=== PATIENT | female | born 1970 | race Caucasian/White ===

== ENCOUNTER 2022-06-12 07:23 | Inpatient (IN) ==
--- NOTE | 2022-06-11 09:02 | XRay Report ---
CLINICAL INFORMATION: Preop COMPARISON: 01/10/2010 TECHNIQUE: PA and lateral views were obtained. FINDINGS: The heart size and pulmonary vessels are unremarkable. Small hiatal hernia noted. Mediastinum otherwise normal The lungs are clear. There are no effusions. IMPRESSION: No acute disease. Small hiatal hernia Interpreted and Authenticated by: Bran Macias 06/11/22
[2022-06-11 11:03] LABS: Partial Thromboplastin Time 40.3 sec (20.0-37.0)
[2022-06-11 11:04] LABS: INR 0.9 (0.9-1.1)
[~2022-06-12 07:23] MED LIST: ceFAZolin 2 GM in DEXTROSE 5% IN WATER 50 ML IV SCH
[2022-06-12] MEDS ORDERED: MAGNESIUM SULFATE 2 GM/50 ML BAG IV ONE (08:42)
[2022-06-12] MEDS ORDERED: HYDROmorphone 0.5 MG/0.5 ML SYRINGE ONE (08:42)
[2022-06-12] MEDS ORDERED: PHENYLephrine 1 MG/10 ML SYRINGE (ANEST) ONE (08:42)
[2022-06-12] MEDS ORDERED: GLYCOPYRROLATE 0.2 MG/ML VIAL IV ONE (08:42)
[2022-06-12] MEDS ORDERED: ROCURONIUM 10 MG/ML ML IV ONE (08:42)
[2022-06-12] MEDS ORDERED: SUCCINYLCHOLINE 20 MG/ML ML IV ONE (08:42)
[2022-06-12] MEDS ORDERED: PROPOFOL 200 MG/20 ML VIAL IV ONE (08:42)
[2022-06-12] MEDS ORDERED: DEXAMETHASONE 10 MG/ML VIAL ONE (08:42)
[2022-06-12] MEDS ORDERED: TRANEXAMIC ACID 1,000 MG/10 ML VIAL ONE (08:42)
[2022-06-12] MEDS ORDERED: KETAMINE 50 MG/ML Syringe (ANEST) IV ONE (08:42)
[2022-06-12] MEDS ORDERED: LIDOCAINE HCL/PF 100 MG/5 ML SYRINGE IV ONE (08:42)
[2022-06-12] MEDS ORDERED: fentaNYL 100 MCG/2 ML VIAL IV ONE (08:42)
[2022-06-12] MEDS ORDERED: MIDAZOLAM 2 MG/2 ML VIAL ONE (08:42)
[2022-06-12] MEDS ORDERED: ONDANSETRON 4 MG/2 ML VIAL ONE (08:42)
[2022-06-12] MEDS ORDERED: MEPERIDINE 25 MG/ML VIAL IV PRN (09:08)
[2022-06-12] MEDS ORDERED: HYDROmorphone 0.5 MG/0.5 ML SYRINGE IV PRN (09:08)
[2022-06-12] MEDS ORDERED: PROMETHAZINE 25 MG/ML VIAL IV PRN (09:08)
[2022-06-12] MEDS ORDERED: ONDANSETRON 4 MG/2 ML VIAL IV PRN (09:08)
[2022-06-12] MEDS ORDERED: METOPROLOL TARTRATE 5 MG/5 ML VIAL IV PRN (09:08)
[2022-06-12] MEDS ORDERED: IPRATROPIUM/ALBUTEROL 3 ML AMPUL.NEB NEB PRN (09:08)
[2022-06-12] MEDS ORDERED: NALOXONE HCL 0.4 MG/ML VIAL IV PRN (09:08)
[2022-06-12] MEDS ORDERED: LACTATED RINGERS 250 ML IV PRN (09:08)
[2022-06-12] MEDS ORDERED: METHOCARBAMOL 1,000 MG/10 ML VIAL IV PRN (09:08)
[2022-06-12] MEDS ORDERED: ACETAMINOPHEN 1,000 MG/100 ML BAG IV ONE (09:08)
[2022-06-12] MEDS ORDERED: LABETALOL 5 MG/ML ML IV PRN (09:08)
[2022-06-12] MEDS ORDERED: FLUMAZENIL 0.1 MG/ML ML IV PRN (09:08)
--- NOTE | 2022-06-12 09:08 | EKG ---
[facility] Test Date: 2022-06-11 Pat Name: Manjula Kent Department: RODGER Room: Gender: Female Ortho Nurse: : [id number] Requested By: Jennifer Jensen Order Number: [id number] Reading MD: Varinder Mason Measurements Intervals Moran Rate: 88 P: 59 HI: 189 QRS: 13 QRSD: 88 T: 24 QT: 363 QTc: 440 Interpretive Statements Sinus rhythm Electronically Signed On 06-12-2022 9:08:38 PDT by Varinder Mason /store/[email or web address]/[id number]/[id number]
[2022-06-12] MEDS ORDERED: LACTATED RINGERS 1,000 ML IV SCH (09:15)
[2022-06-12] MEDS ORDERED: GELATIN SPONGE,ABSORBABLE 1 EACH SPONGE TOPICAL ONE (10:30)
[2022-06-12] MEDS ORDERED: 0.9 % SODIUM CHLORIDE 250 ML IV SCH (10:45)
--- NOTE | 2022-06-12 11:03 | XRay Report ---
CLINICAL INFORMATION: Intraoperative cholecystectomy. Sponge count COMPARISON: None. FINDINGS: No radiopaque sponges identified. Drain overlies the right upper quadrant. The stool gas pattern is unremarkable. There is no free air, soft tissue mass, organomegaly or pathologic calcification. IMPRESSION: Normal abdomen. No sponges identified. Interpreted and Authenticated by: Bran Macias 06/12/22
--- NOTE | 2022-06-12 11:05 | Brief Operative Note ---
Brief Operative Note Date of procedure: 06/12/22 Pre-op diagnosis: cholelithiasis with cholecystitis Post-op diagnosis: other (cholelithiasis with cholecystitis) Procedure: laparoscopic cholecystectomy open laparotomy with control of bleeding from liver sinus Grafts/Implants: No Anesthesia: GETA Findings: thickened gallbladder wall superficial liver sinus in liver bed with friable wall and hemorrhage Complications: none Surgeon: Jennifer Jensen Estimated blood loss (cc): 400 Specimens Removed/Pathology: other (gallbladder) Condition: stable Disposition: PACU
[2022-06-12] MEDS: fentaNYL 100 MCG/2 ML VIAL IV PRN ×3 (11:29→11:51)
[2022-06-12 11:43] LABS: Hematocrit 26.8 % (34.1-44.9); Hemoglobin 8.3 g/dL (11.2-15.7)
[2022-06-12] MEDS: 0.9 % SODIUM CHLORIDE 1,000 ML IV SCH (12:36)
[2022-06-12] MEDS: LEVOFLOXACIN 500 MG/100 ML BAG IV SCH (12:38)
[2022-06-12] MEDS: HYDROmorphone 1 MG/ML SYRINGE IV PRN ×3 (13:59→19:46)
[2022-06-12] MEDS: 0.9 % SODIUM CHLORIDE 10 ML SYRINGE IV SCH ×2 (14:03→20:33)
[2022-06-12 16:46] LABS: Hematocrit 30.2 % (34.1-44.9); Hemoglobin 9.4 g/dL (11.2-15.7)
[2022-06-12] MEDS ORDERED: PANTOPRAZOLE 40 MG TABLET PO ONE (20:23)
[2022-06-12] MEDS: SENNOSIDES 1 TABLET PO SCH (20:33)
[2022-06-12] MEDS: DOCUSATE SODIUM 100 MG CAPSULE PO SCH (20:33)
[2022-06-12] MEDS: ONDANSETRON 4 MG/2 ML VIAL IV PRN (20:49)
[2022-06-13] MEDS: 0.9 % SODIUM CHLORIDE 1,000 ML IV SCH ×2 (00:06→01:43)
[2022-06-13] MEDS: HYDROmorphone 1 MG/ML SYRINGE IV PRN ×5 (01:43→20:07)
[2022-06-13] MEDS: CALCIUM CARBONATE 500 MG TAB.CHEW CHEWED PRN ×4 (03:37→20:07)
[2022-06-13] MEDS: 0.9 % SODIUM CHLORIDE 10 ML SYRINGE IV SCH ×3 (05:36→20:07)
[2022-06-13 06:48] LABS: Basophils # (Auto) 0.02 K/mcL (0.00-0.30); Basophils % (Auto) 0.2 % (0.0-2.0); Eosinophils # (Auto) 0 K/mcL (0.00-0.70); Eosinophils % (Auto) 0 % (0.0-7.0); Hematocrit 28.4 % (34.1-44.9); Hemoglobin 8.9 g/dL (11.2-15.7); Lymphocytes # (Auto) 1.51 K/mcL (1.50-4.80); Lymphocytes % (Auto) 11.7 % (15.5-49.0); Mean Cell Volume 89.6 fL (80.0-100.0); Mean Corpuscular HGB Conc 31.3 g/dL (31.0-36.0); Mean Platelet Volume 9.6 fL (8.8-12.5); Monocytes # (Auto) 0.72 K/mcL (0.10-0.90); Monocytes % (Auto) 5.6 % (1.0-12.0); Platelet Count 332 K/mcL (140-440); RBC 3.17 M/mcL (3.59-5.38); Red Cell Distribution Width 13.6 % (11.5-14.5)
[2022-06-13 07:12] LABS: ALT/SGPT 94 U/L (<40); AST/SGOT 86 U/L (<32); Albumin 2.9 gm/dL (3.2-5.2); Alkaline Phosphatase 103 U/L (39-117); Bilirubin,Direct < 0.2 mg/dL (0-0.3); Bilirubin,Total 0.4 mg/dL (0.1-1.0); Blood Urea Nitrogen 14 mg/dL (6-20); Calcium 8.3 mg/dL (8.6-10.4); Carbon Dioxide 28 mmol/L (22-30); Chloride 103 mmol/L (96-108); Globulin 2.8 gm/dL (2.2-3.7); Glomerular Filtration Rate 73; Glucose 120 mg/dL (70-105); Lactate Dehydrogenase 253 U/L (135-225); Phosphorous 2.9 mg/dL (2.5-4.5); Triglycerides 95 mg/dL (<150); Uric Acid 4.2 mg/dL (2.5-8.0)
[2022-06-13] MEDS: ONDANSETRON 4 MG/2 ML VIAL IV PRN (07:48)
[2022-06-13] MEDS: DOCUSATE SODIUM 100 MG CAPSULE PO SCH ×2 (10:19→20:07)
[2022-06-13] MEDS: PANTOPRAZOLE 40 MG TABLET PO SCH (12:13)
[2022-06-13] MEDS: LEVOFLOXACIN 500 MG/100 ML BAG IV SCH (12:13)
--- NOTE | 2022-06-13 13:54 | General Surgery Progress Note ---
SUBJECTIVE Subjective Patient information: Note initiated : 06/13/22 at 1:48 pm Service Date, if different from initiated Date: [] Patient: Manjula Kent 51 y/o F admitted on 06/12/22 for Laparoscopic Cholecystectomy. Chief Complaint: [] Interval history: Patient feels much better. She does have moderately severe pain but it has improved from yesterday. She denies nausea. She has been afebrile. White blood count 13,000, hemoglobin 8.9, hematocrit 28.4, LFTs show slight increase in AST ALT with normal alkaline phosphatase. There is minimal serosanguineous fluid out of her ANDRE. Constitutional Vitals: Vital Signs Temp Pulse Resp BP Pulse Ox O2 Del Method O2 Flow Rate 98.8 F 97 H 16 118/73 92 2 06/13/22 11:29 06/13/22 11:29 06/13/22 11:29 06/13/22 11:29 06/13/22 11:29 06/13/22 11:29 06/12/22 16:00 Period Temp Pulse Resp BP Sys/Pereyra Pulse Ox O2 Del Method O2 Flow Rate Last 24 Hr 97.7 F-98.8 F 77-97 16-18 116-148/64-87 92-100 Nasal Cannula- Room Air 2-2 Intake and Output 06/12/22 06/13/22 06/13/22 21:59 05:59 13:59 Intake Total 1224 Output Total 751.5 1075 300 Balance -751.5 149 -300 Weight 197 lb 8 oz Intake & Output: Intake & Output 06/12/22 06/13/22 06/13/22 21:59 05:59 13:59 Intake Total 1224 Output Total 751.5 1075 300 Balance -751.5 149 -300 Weight 197 lb 8 oz Intake: IV 984 Sodium Chloride 0.9% 1,000 ml @ 984 75 mls/hr IV .[id number] [facility] Rx#: [id number] Oral 240 Output: Drainage 0 Abdomen ANDRE Drain 0 Drainage 1.5 Abdomen ANDRE Drain 1.5 Void Amount 750 1075 300 Other: Meal Lunch Percent of Meal Consumed 50% Feeding Ability Independent Urine Appearance Clear Clear Clear Urine Color Yellow Yellow Yellow Urine Odor Normal Normal # Voids 2 ENT ENT exam: Present normal exam and normal oropharynx Neck Neck exam: Present full ROM and normal inspection; Absent tenderness Respiratory Respiratory exam: Present normal respiratory exam and CTAB Cardiovascular Cardiovascular exam: Present RRR, +S1 and +S2; Absent JVD GI/Abdominal GI/Abdominal exam: Present normal bowel sounds and tenderness (Moderate severe tenderness of her right subcostal incision;); Absent distended Additional comments: Small-volume serosanguineous output via ANDRE drain. Extremities Exam Extremities exam: Present full ROM and neurovascular intact Neurological Exam Neurological exam: Present oriented X3 and reflexes normal; Absent motor sensory deficit Psychiatric Psychiatric exam: Present normal affect and normal mood A/P Assessment and plan (1) Cholelithiasis and cholecystitis without obstruction: Status: Acute (2) Liver hemorrhage: Status: Acute Plan Continue to monitor Saline lock IV Check CBC in a.m. Time Spent With Patient Time: Total time spent is greater than 50% in coordination of care (as documented) at patient's floor/unit and/or counseling patient:
[2022-06-13] MEDS: SENNOSIDES 1 TABLET PO SCH (20:07)
[2022-06-14] MEDS: HYDROmorphone 1 MG/ML SYRINGE IV PRN ×5 (00:14→15:56)
[2022-06-14] MEDS: CALCIUM CARBONATE 500 MG TAB.CHEW CHEWED PRN ×2 (00:14→04:17)
[2022-06-14] MEDS: 0.9 % SODIUM CHLORIDE 10 ML SYRINGE IV SCH ×2 (05:24→13:22)
[2022-06-14 06:51] LABS: Basophils # (Auto) 0.04 K/mcL (0.00-0.30); Basophils % (Auto) 0.5 % (0.0-2.0); Eosinophils # (Auto) 0.07 K/mcL (0.00-0.70); Eosinophils % (Auto) 0.8 % (0.0-7.0); Hematocrit 26.1 % (34.1-44.9); Hemoglobin 8.1 g/dL (11.2-15.7); Lymphocytes # (Auto) 1.78 K/mcL (1.50-4.80); Lymphocytes % (Auto) 20.2 % (15.5-49.0); Mean Cell Volume 90.3 fL (80.0-100.0); Mean Platelet Volume 9.9 fL (8.8-12.5); Monocytes # (Auto) 1.01 K/mcL (0.10-0.90); Monocytes % (Auto) 11.5 % (1.0-12.0); Neutrophils % (Auto) 66.5 % (38.0-78.0); Platelet Count 247 K/mcL (140-440); RBC 2.89 M/mcL (3.59-5.38); Red Cell Distribution Width 13.8 % (11.5-14.5); WBC 8.8 K/mcL (4.5-11.0)
[2022-06-14] MEDS: PANTOPRAZOLE 40 MG TABLET PO SCH (07:35)
[2022-06-14] MEDS: DOCUSATE SODIUM 100 MG CAPSULE PO SCH (09:33)
[2022-06-14] MEDS: LEVOFLOXACIN 500 MG/100 ML BAG IV SCH (09:33)
--- NOTE | 2022-06-14 14:38 | Discharge Summary ---
Discharge Provider Provider IMPORTANT FOLLOW-UP INFORMATION FOR PCP: Patient information: Note initiated : 06/14/22 at 2:35 pm Service Date, if different from initiated Date: [] Patient: Manjula Kent 51 y/o F admitted on 06/12/22 for Laparoscopic Cholecystectomy. Chief Complaint: [] Date of admission: 06/12/22 12:21 Discharge date: 06/14/22 Primary care physician: Amrit Moy MD Admitting clinician: Jennifer Jensen Attending physician on admission: Jennifer Jensen Attending physician on discharge: Jennifer Jensen Discharging clinician: Jennifer Jensen COURSE Hospital Course Hospital course: 51-year-old female who is status post laparoscopic cholecystectomy with open laparotomy to control hemorrhage from venous sinus and hepatic bed. Patient developed significant bleeding from acidification sinus in the middle of the gallbladder as the gallbladder was being removed. This was not controllable laparoscopically so a subcostal incision was made and the sinus was closed with multiple sutures #1 chromic. She was admitted postoperatively. She has not had any significant bleeding since the surgery. Her hemoglobin has stabilized at 8.1. She is resistant to transfusion and her hemoglobin is stable enough that she should not require transfusion. There has been no blood through her drain in the postop period. Her pain is better controlled Discharge diagnosis: Cholelithiasis with cholecystitis Secondary discharge diagnosis: Intraoperative hemorrhage venous sinus Reason for admission: Postop cholecystectomy; intraoperative Procedures: Laparoscopic cholecystectomy Emergency laparotomy with control of liver hemorrhage Pertinent studies/significant findings: None Complications: Intraoperative liver hemorrhage Time Spent with Patient Time attestation: Total time spent providing and/or coordinating discharge services: Time spent: Less than 30 minutes Physical Examination Vital Signs Vital signs: Temp Pulse Resp BP Pulse Ox O2 Del Method O2 Flow Rate 99.5 F H 106 H 16 113/58 92 1 06/14/22 11:49 06/14/22 11:49 06/14/22 11:49 06/14/22 11:49 06/14/22 11:49 06/14/22 11:49 06/13/22 23:28 General physical appearance General physical exam: well developed, well nourished and no distress Eyes Eye exam: PERRL and normal ocular movement; negative icteric ENT ENT exam: normal pinna, normal nares and normal mucosa Head Head exam IM: Present atraumatic, normal inspection and normocephalic Neck Neck exam: no masses, no bruits, trachea midline, no lymphadenopathy and no venous distension Cardiovascular Cardiovascular exam IM: Present normal rate and rhythm, RRR, +S1 and +S2; Absent JVD Respiratory Respiratory exam: normal expansion, normal respiratory effort and clear to auscultation Abdomen Abdomen: Present tender (Tender right subcostal incision and port sites) and bowel sounds (Normal bowel sounds) Integumentary Integumentary: Present no rash, no growths and no abnormal pigmentation Neurologic Neurologic: Present normal coordination and normal sensation Musculoskeletal Musculoskeletal: Present normal gait and normal posture Psychiatric Psychiatric: Present oriented to time, oriented to person, oriented to place, speech is normal and memory intact Discharge Plan Patient/Caregiver Discharge Instructions Activity: increase activity as tolerated Diet: Low Fat Prescriptions: New oxycodone-acetaminophen [Endocet] 10-325 mg tablet 1 tab PO Q4H PRN (Reason: Pain) Qty: 40 0RF Continued hydrochlorothiazide 25 mg tablet 25 mg PO QDAY sumatriptan succinate 50 mg tablet See Rx Instructions PO .COMPLEX Qty: 10 2RF Rx Instructions: take 1 tab at onset of headache; if no relief may repeat 1 tab after at least 2 hrs; max = 4 tabs/24 hr PO amlodipine 5 mg tablet 5 mg PO QAM omeprazole 40 mg capsule,delayed release(DR/EC) 40 mg PO QAM Adults Multivitamin 18 mg iron-400 mcg-25 mcg Tablet 1 tab PO DAILY Prescription drug monitoring program results: PDMP not reviewed Follow Up Plan Follow up with: Jennifer Jensen MD [Physician] - (Contact the office tomorrow for follow-up in 1 week) Patient Disposition: Home, Self-Care Prognosis: Good Rehab Potential: Good I certify that the patient requires SNF services: No Overall status at discharge: patient is not back to baseline Discharge Orders: Discharge Order (Routine); Ordered 06/14/22 Ordered By: Jennifer Jensen Pending Pending Pending: Resuscitation Status Resuscitate (Full Code) Diet Regular Diet Start Sun Jun 14 1414 Calcium Carbonate/Glycine (Calcium Carbonate 500 Mg Tab.Chew) 500 mg CHEWED Q4HP PRN PRN Reason: Dyspepsia Last Admin: 06/14/22 04:17 Dose: 500 mg Documented By: Admin: 06/14/22 00:14 Dose: 500 mg Documented By: Admin: 06/13/22 20:07 Dose: 500 mg Documented By: Admin: 06/13/22 14:53 Dose: 500 mg Documented By: Co-signed By: SOY Admin: 06/13/22 10:19 Dose: 500 mg Documented By: Co-signed By: SOY Admin: 06/13/22 03:37 Dose: 500 mg Documented By: SOLITARIO Docusate Sodium (Docusate Sodium 100 Mg Capsule) 100 mg PO BID [facility] Last Admin: 06/14/22 09:33 Dose: 100 mg Documented By: Co-signed By: SOY Admin: 06/13/22 20:07 Dose: 100 mg Documented By: Admin: 06/13/22 10:19 Dose: 100 mg Documented By: Co-signed By: SOY Admin: 06/12/22 20:33 Dose: 100 mg Documented By: SOLITARIO Hydromorphone HCl (Hydromorphone 1 Mg/Ml Syringe) 1 mg IV Q2HP PRN; Protocol PRN Reason: Per Pain Protocol Last Admin: 06/14/22 13:22 Dose: 1 mg Documented By: Admin: 06/14/22 09:22 Dose: 1 mg Documented By: Co-signed By: SOY Admin: 06/14/22 05:25 Dose: 1 mg Documented By: Admin: 06/14/22 00:14 Dose: 1 mg Documented By: Admin: 06/13/22 20:07 Dose: 1 mg Documented By: Admin: 06/13/22 17:32 Dose: 1 mg Documented By: Admin: 06/13/22 12:45 Dose: 1 mg Documented By: Admin: 06/13/22 07:29 Dose: 1 mg Documented By: Co-signed By: SOY Admin: 06/13/22 01:43 Dose: 1 mg Documented By: Admin: 06/12/22 19:46 Dose: 1 mg Documented By: Admin: 06/12/22 16:34 Dose: 1 mg Documented By: Admin: 06/12/22 13:59 Dose: 1 mg Documented By: SOY Levofloxacin (Levaquin) 500 mg in 100 mls @ 100 mls/hr IV Q24H [facility]; Protocol Last Infusion: 06/14/22 10:35 Dose: 0 mls/hr Documented By: Admin: 06/14/22 09:33 Dose: 100 mls/hr Documented By: Co-signed By: SOY Infusion: 06/13/22 13:15 Dose: 0 mls/hr Documented By: Admin: 06/13/22 12:13 Dose: 100 mls/hr Documented By: Co-signed By: SOY Infusion: 06/12/22 13:40 Dose: 0 mls/hr Documented By: Admin: 06/12/22 12:38 Dose: 100 mls/hr Documented By: SOY Ondansetron HCl (Ondansetron 4 Mg/2 Ml Vial) 4 mg IV Q6HP PRN PRN Reason: Nausea And Vomiting Last Admin: 06/13/22 07:48 Dose: 4 mg Documented By: Co-signed By: SOY Admin: 06/12/22 20:49 Dose: 4 mg Documented By: SOLITARIO Pantoprazole Sodium (Pantoprazole 40 Mg Tablet) [facility] Last Admin: 06/14/22 07:35 Dose: 40 mg Documented By: Co-signed By: SOY Admin: 06/13/22 12:13 Dose: 40 mg Documented By: Co-signed By: SOY Senna (Sennosides 1 Tablet) 2 tab PO [facility] Last Admin: 06/13/22 20:07 Dose: 2 tab Documented By: Admin: 06/12/22 20:33 Dose: 2 tab Documented By: SOLITARIO Sodium Chloride (0.9 % Sodium Chloride 10 Ml Syringe) 10 ml IV Q8 [facility] Last Admin: 06/14/22 13:22 Dose: 10 ml Documented By: Admin: 06/14/22 05:24 Dose: 10 ml Documented By: Admin: 06/13/22 20:07 Dose: 10 ml Documented By: Admin: 06/13/22 14:59 Dose: 10 ml Documented By: Co-signed By: SOY Admin: 06/13/22 05:36 Dose: Not Given Documented By: Admin: 06/12/22 20:33 Dose: Not Given Documented By: Admin: 06/12/22 14:03 Dose: Not Given Documented By: SOY Shift Summary 06/14/22 02:48 Shift Summary by Beatris Ash Primary Diagnosis: Cholelithiasis with Cholecystitis Registration Status: IP Date of Surgery (if applicable): 06/12/22 Lap Jail[place], open lap with control bleeding from liver sinus Pertinent Medical Dx/Issue(s): ADHD, Depression, Anxiety, HTN, Restless leg Med management (antibiotics, diuretics, BP): IV fluid, Levaquin, pain med Skin/Wound Care: X2 lap sites with jose r and tegaderm, X1 transverse incision with jose r and tegaderm, X1 ANDRE drain Vital Signs with Trends: VSS O2, liter flow/saturations: 1L NC Pain management (acute vs. chronic): X2 Dilaudid, X2 TUMS Neuro/Mental Status: A&OX4 Urinary Elimination Device: Bathroom Urinary output greater than 30mL/hr? Yes Date of last BM: 06/11/22, Pt burping but not passing gas yet after surgery. Lines/Tubes: R A/C SL Activity: SBA Discharge Plan (needs, disposition, etc): TBD Initialized on 06/14/22 02:48 - END OF NOTE
--- NOTE | 2022-06-17 12:26 | Operative Note ---
DATE OF OPERATION: 06/12/2022 PREOPERATIVE DIAGNOSES: Cholelithiasis with cholecystitis. POSTOPERATIVE DIAGNOSES: 1. Cholelithiasis with cholecystitis. 2. Hemorrhage from bleeding liver sinus. PROCEDURE: Laparoscopic cholecystectomy and open laparotomy with control of bleeding from liver sinus in the bed of the gallbladder. SURGEON: Jennifer Jensen M.D. FINDINGS: Thickened gallbladder wall. Superficial liver sinus in the liver bed with friable wall hemorrhage. DESCRIPTION OF PROCEDURE: Under general anesthesia, the patient's abdomen was prepped and draped in a sterile field. A timeout procedure was carried out as per protocol. Supraumbilical midline incision was made and Veress needle was inserted. The abdomen was insufflated with 3 liters of CO2. A 12 mm port was placed. Laparoscope was placed. Under videoscopic guidance, a 12 mm port and two 5 mm ports were placed in the right subcostal region. The patient was placed in reverse Trendelenburg position and rotated to the left. The gallbladder was tightly distended and was partially intrahepatic. It was about half of the wall of the gallbladder being intrahepatic. The gallbladder wall was thickened, so it was decompressed to allow me he have good grasp of the wall. The gallbladder was positioned. Cystic duct and cystic artery were sequentially dissected. After they were fully identified, the cystic duct was clipped with five clips and divided and the cystic artery was clipped with four clips and divided on the wall of the gallbladder. Using electrocautery, the gallbladder was then from the hepatic bed. There were small vascular-looking structures exiting from the gallbladder into the posterior wall of the gallbladder. These were sequentially dissected and were clipped with three clips and divided. At the upper margin of the gallbladder, there appeared to be glistening structure that was attached to the posterior wall of the gallbladder. On palpation, it was very soft, and it was elected to try to control this. As I was dissecting it, the area was entered and a large volume of blood immediately gushed from this apparent venous sinus or superficial hepatic vein. I tried to clip it, but it would not hold clips because of the thinness of the wall. I placed a Ray-Femi with Gelfoam into the bed of the liver and held this in place with a Kittner dissector. This was able to control the bleeding. While I held compression, the scrub team set up instrumentation for an open laparotomy. Once they were ready, I inspected the area and there was no major bleeding at this point, though there was some oozing. A right subcostal incision was made connecting the upper medial port site and the lateral port site. The incision extended through the subcutaneous tissue and muscle and fascia. Peritoneum was entered. Irrigation was carried out. Inspection revealed this to be a superficial, thin-wall hepatic vein. A #1 chromic on a large blunt needle was chosen, and the area of the tract was then sutured through and through, extending from the undersurface of the liver, through the dome of the liver, and back through the undersurface of the liver twice. This was snugly tied and controlled most of the hemorrhage. Once this was done, I chose multiple sheets of Gelfoam and packed in the bed. I then put three other sutures to hold this in place. The suture was the #1 chromic on the large blunt needle. This totally controlled the bleeding. For surety, I placed three large SurgiSeal sheets in the bed and held compression on this. It was inspected and there was no further bleeding. A David drain was then placed in the bed for the closure and carried out. It was extended across the entire inferior surface of the liver bed. It was brought out through the most lateral incision. Further inspection revealed no bleeding or even oozing. I felt satisfied that the bleeding was controlled. Sponge, needle, instrument, and blade counts were verified as correct. The muscle and fascial layers were closed in two layers using running 0 Prolene. Subcutaneous tissue was closed with 2-0 Monocryl. Skin was closed with jose r. The opening in the supraumbilical midline was closed with 0 Vicryl and the skin was closed with jose r. The drain was secured with 2-0 nylon. The patient tolerated the procedure well. She was awakened, transferred to a bed, and taken to the postanesthetic care unit in satisfactory condition. LCS:[email or web address] Job ID: [id number] Doc ID: [id number] Jennifer Jensen M.D.
== END 2022-06-14 16:55 | disposition home or self-care (01) | DRG 415 ==
LOC: SUR 07:23 → MEDSUR 12:21
PROVIDERS: ADMIT Family Medicine Adult Medicine; ATTEND Family Medicine Adult Medicine